=== PATIENT | male | born 1985 | race Native Hawaiian/Other Pacific Islander ===

== ENCOUNTER 2020-08-11 10:24 | Emergency (ER) | payer MEDICAID ==
[~2020-08-11] VITALS: Ht 177.8 cm; Wt 158.8 kg
[2020-08-11] MEDS ORDERED: KETOROLAC TROMETH 60MG/2ML VIAL IM ONE (11:45)
[2020-08-11] MEDS ORDERED: BACITRACIN TOP OINT 1 UD PKG TOP ONE (11:45)
[2020-08-11 13:27] VITALS: BP 145/90
== END 2020-08-11 13:28 | disposition home or self-care (01) ==
LOC: ER 10:25
DX: S30.1XXA Contusion of abdominal wall, initial encounter (principal); S70.12XA Contusion of left thigh, initial encounter; S50.812A Abrasion of left forearm, initial encounter; S00.81XA Abrasion of other part of head, initial encounter; R07.81 Pleurodynia; K76.0 Fatty (change of) liver, not elsewhere classified; R91.1 Solitary pulmonary nodule; Z87.891 Personal history of nicotine dependence; V49.49XA Driver injured in collision with other motor vehicles in traffic accident, initial encounter; Y93.89 Activity, other specified; Y92.488 Other paved roadways as the place of occurrence of the external cause; Y99.8 Other external cause status
CPT/HCPCS: 71250; 74176; 96372; 99285; J1885